=== PATIENT | female | born 1985 | race Caucasian/White ===

== ENCOUNTER → 2023-09-30 | Outpatient (CLI) | payer OTHER, SELFPAY ==
[2023-09-30 11:10] LABS: Erythrocyte Sedimentation Rate 4 mm/hr (0-30)
[2023-09-30 11:14] LABS: Absolute Lymphocyte Count 1.78 X10^3/uL (0.83-4.51); Absolute Neutrophil Count 2.8 X10^3/uL (2.0-7.7); Basophil# 0.02 X10^3/uL; Basophil% 0.4 % (0-1); Eosinophil# 0.14 X10^3/uL; Eosinophils% 2.8 % (0-5); Hematocrit 37.5 % (37-47); Hemoglobin 12.3 g/dL (12.0-15.0); Lymphocyte # 1.78 X10^3/ul (0.83-4.51); Mean Corp Hgb Conc 32.8 g/dL (32-36); Mean Corpuscular Hgb 28.3 pg (27.0-32.0); Mean Corpuscular Volume 86.4 fL (81-99); Mean Platelet Vol. 10.3 fl (6.2-12.0); Monocyte# 0.35 X10^3/uL; Monocyte% 6.9 % (0-10); NRBC Flagged by Analyzer 0 % (0-5); Neutrophil # 2.79 X10^3/uL (2.7-7.7); Neutrophil % 54.7 % (47-70); Platelet Count 237 K/mm3 (150-450); RBC Distribution Width CV 12.4 % (11.6-14.6); RBC Distribution Width SD 39.4 fl (35.1-43.9); Red Blood Count 4.34 M/mm3 (4.2-5.4); White Blood Count 5.1 K/mm3 (4.4-11.0)
[2023-09-30 12:42] LABS: ALB/GLOB Ratio 0.9 RATIO (0.9-2.4); AST(SGOT) 21 U/L (15-37); Alanine Aminotransfer ALT/SGPT 22 U/L (13-56); Albumin, Serum 3.6 g/dL (3.2-5.0); Alkaline Phosphatase 76 U/L (45-117); Anion Gap 10 (5-15); BUN 13 mg/dL (7-18); BUN/Creat Ratio 15.3 RATIO (10-20); CRP 8.46 mg/L (0.0-3.0); Calcium,Total 8.7 mg/dL (8.5-10.1); Chloride 105 mmol/L (98-107); Creatinine, Serum 0.85 mg/dL (0.55-1.02); EST Glomerular Filtration Rate 79 mL/min (>60); Est Glom Filt Rate - Afr Amer 96 mL/min (>60); Ferritin 98 ng/mL (8-252); Globulin 4.1 g/dL (2.2-4.2); Glucose 96 mg/dL (74-106); Potassium 3.7 mmol/L (3.5-5.1); Protein, Total 7.7 g/dL (6.4-8.2); Sodium Level 137 mmol/L (136-145)
[2023-10-03 20:08] LABS: Pancreatic Elastase, Fecal > 800 (>200)
[2023-10-04 06:14] LABS: Calprotectin, Stool 8 ug/g (0-120)
[2023-10-04 17:07] LABS: Anti-Centromere B Ab <0.2 AI (0.0-0.9); Anti-Chromatin <0.2 AI (0.0-0.9); Anti-Jo <0.2 AI (0.0-0.9); Anti-Mitochondrial AB <20.0 Units (0.0-20.0); Anti-Scleroderma-70 AB <0.2 AI (0.0-0.9); Anti-dsDNA Ab 3 IU/mL (0-9); Beef <0.10 kU/L (Class 0); Chocolate <0.10 kU/L (Class 0); Codfish <0.10 kU/L (Class 0); Corn <0.10 kU/L (Class 0); Egg, Whole <0.10 kU/L (Class 0); Milk (Cow) <0.10 kU/L (Class 0); Mussels <0.10 kU/L (Class 0); Peanut <0.10 kU/L (Class 0); Pork <0.10 kU/L (Class 0); RNP Ab 3.7 AI (0.0-0.9); SJOGREN'S Anti-SS-A test < 0.2 AI (0.0-0.9); SJOGREN'S Anti-SS-B test < 0.2 AI (0.0-0.9); Salmon <0.10 kU/L (Class 0); Shrimp <0.10 kU/L (Class 0); Smith Ab <0.2 AI (0.0-0.9); Soybean <0.10 kU/L (Class 0); Tuna <0.10 kU/L (Class 0); Wheat <0.10 kU/L (Class 0)
[2023-10-05 11:07] LABS: ACCA 13 units (0-90); ALCA 21 units (0-60); AMCA 39 units (0-100); Albumin 3.6 g/dL (2.9-4.4); Alpha-1-Globulins 0.3 g/dL (0.0-0.4); Alpha-2-Globulins 0.8 g/dL (0.4-1.0); Anti-Smooth Muscle ABS 6 Units (0-19); Cytoplasmic Ab (C-ANCA) <1:20 titer (Neg:<1:20); Endomysial Antibody IgA Negative (Negative); Gamma Globulin 1.4 g/dL (0.4-1.8); Immunoglobulin A 174 mg/dL (87-352); Immunoglobulin E 68 IU/mL (6-495); Immunoglobulin G 1383 mg/dL (586-1602); Immunoglobulin M 193 mg/dL (26-217); PROEL- TOTAL PROTEIN 7.3 g/dL (6.0-8.5); Perinuclear Ab (P-ANCA) <1:20 titer (Neg:<1:20); gASCA 18 units (0-50); t-Transglutaminase IgA <2 U/mL (0-3)
== END | disposition home or self-care (01) ==
PROVIDERS: PCP Internal Medicine; Referring Provider Student in an Organized Health Care Education/Training Program; Visit Provider Student in an Organized Health Care Education/Training Program
DX: K58.0 Irritable bowel syndrome with diarrhea (principal)
CPT/HCPCS: 36415; 80053; 82653; 82728; 82784; 82785; 83516; 83630; 83993; 84165; 85025; 85652; 86003; 86005; 86036; 86140; 86225; 86235; 86255; 86256; 86334; 86671

== ENCOUNTER → 2023-10-08 | Outpatient (CLI) | payer OTHER, SELFPAY ==
--- NOTE | 2023-10-08 16:00 | RAD_ITS ---
EXAM: XR LUMBOSACRAL SPINE, 2 OR 3 VIEWS CLINICAL INDICATION: back pain TECHNIQUE: Frontal and lateral views of the lumbar spine and sacrum. COMPARISON: Thoracic spine on the same date and lumbar spine dated 10/07/2006. FINDINGS: VERTEBRAE: Mild multilevel endplate osteophytosis and facet arthrosis. Mild apex right thoracolumbar curvature. Preserved vertebral body height. No fracture. No spondylolisthesis. DISC SPACES: No significant findings. Disc spaces are maintained. GASTROINTESTINAL TRACT: Normal as visualized. Included bowel gas pattern is non-obstructive. RAD/Lumbar Spine 2 or 3 Views IMPRESSION: Mild degenerative changes and spinal curvature. No acute findings. Electronically Signed: Kp Casas DO at 21:16 EDT ,
--- NOTE | 2023-10-08 16:00 | RAD_ITS ---
EXAM: XR THORACIC SPINE, 3 VIEWS CLINICAL INDICATION: back pain TECHNIQUE: Frontal, lateral and swimmer''s views of the thoracic spine. COMPARISON: Lumbar spine on the same date and thoracic spine, 10/07/2006. FINDINGS: VERTEBRAE: Subtle apex left thoracic curvature without significant rotation. Preserved vertebral body height. No fracture. No spondylolisthesis. No significant facet arthropathy. DISC SPACES: No significant abnormality. Disc spaces are maintained. RAD/Thoracic Spine 3 Views IMPRESSION: Subtle apex left thoracic curvature without significant rotation. This is new since 2006. Otherwise, no significant abnormality. Electronically Signed: Kp Casas DO at 21:15 EDT ,
--- NOTE | 2023-10-08 16:00 | RAD_ITS ---
EXAM: XR CERVICAL SPINE, 2 OR 3 VIEWS CLINICAL INDICATION: neck pain TECHNIQUE: Frontal and lateral views of the cervical spine. COMPARISON: Thoracic spine on the same date. FINDINGS: VERTEBRAE: Mild multilevel facet arthrosis, uncovertebral joint arthrosis, and endplate osteophytosis. Mild apex right cervical spine curvature. Preserved vertebral body height. No acute fracture. No spondylolisthesis. DISC SPACES: No significant abnormality. Disc spaces are maintained. SOFT TISSUES: No significant abnormality. No prevertebral soft tissue widening. LUNG APICES: Clear. RAD/Cerv Spine 2 or 3 Views IMPRESSION: Mild cervical spine curvature. Mild degenerative changes. No acute findings. Pending Final Proof Editing
[2023-10-08 16:19] LABS: CPK Total, Creatine Kinase 87 U/L (26-192)
[2023-10-10 11:09] LABS: Anti-dsDNA Ab 2 IU/mL (0-9)
[2023-10-10 14:09] LABS: Aldolase < 1.2 U/L (3.3-10.3); Complement C3 141 mg/dL (82-167); Complement CH50 57 U/mL (>41); IgG, Quant 1251 mg/dL (586-1602); Immunoglobulin G, Subclass 1 551 mg/dL (248-810); Immunoglobulin G, Subclass 2 471 mg/dL (130-555); Immunoglobulin G, Subclass 3 88 mg/dL (15-102); Immunoglobulin G, Subclass 4 23 mg/dL (2-96); Myoglobin, Serum 21 ng/mL (25-58)
== END | disposition home or self-care (01) ==
PROVIDERS: PCP Internal Medicine; Referring Provider Internal Medicine Gastroenterology; Visit Provider Internal Medicine Gastroenterology
DX: M35.1 Other overlap syndromes (principal); R19.7 Diarrhea, unspecified; M12.9 Arthropathy, unspecified
CPT/HCPCS: 36415; 72040; 72072; 72100; 82085; 82550; 82784; 82787; 83874; 86160; 86162; 86225

== ENCOUNTER → 2023-10-10 | Outpatient (CLI) | payer OTHER, SELFPAY | END | disposition home or self-care (01) | LOC: LAB 13:13 → LABSPEC 13:17 | PROVIDERS: PCP Internal Medicine; Referring Provider Internal Medicine Gastroenterology; Visit Provider Internal Medicine Gastroenterology | DX: R19.7 Diarrhea, unspecified (principal) ==

== ENCOUNTER → 2024-07-15 | Outpatient (CLI) | payer OTHER, SELFPAY ==
[2024-07-19 14:08] LABS: Aldolase 1.3 U/L (3.3-10.3)
== END | disposition home or self-care (01) ==
LOC: LAB 12:58
PROVIDERS: PCP Internal Medicine; Referring Provider Student in an Organized Health Care Education/Training Program; Visit Provider Student in an Organized Health Care Education/Training Program
DX: R19.7 Diarrhea, unspecified (principal)
CPT/HCPCS: 36415; 82085

== ENCOUNTER → 2024-08-09 | Outpatient (CLI) | payer OTHER, SELFPAY ==
--- NOTE | 2024-08-09 08:59 | BI_ITS ---
EXAM: SCRN MAMM (CAD)W/SOFIA BILAT DATE: 08/09/2024 CLINICAL HISTORY: F, Age 39 y/o , SCREENING BREAST CANCER RISK ASSESSMENT: Has not been calculated. TECHNIQUE: SCRN MAMM (CAD)W/SOFIA BILAT COMPARISON: None. This is a baseline study. FINDINGS: TISSUE DENSITY: The breast tissue is composed of scattered areas of fibroglandular density. Bilateral Breast Mammographic Findings: There are no suspicious masses, suspicious cluster of microcalcifications, architectural distortion or secondary signs of malignancy identified in either breast. BI/SCRN MAMM (CAD)W/SOFIA BILAT IMPRESSION: Unremarkable screening mammogram study. OVERALL FINAL ASSESSMENT BI-RADS 1: NEGATIVE. RECOMMEND ANNUAL MAMMOGRAPHIC SCREENING. RECOMMENDATION: Routine annual follow-up in 1 Year A letter with findings and recommendations will be mailed to the patient. Reading Location: [id number]
== END | disposition home or self-care (01) ==
PROVIDERS: PCP Internal Medicine; Referring Provider Nurse Practitioner Family; Visit Provider Nurse Practitioner Family
DX: Z12.31 Encounter for screening mammogram for malignant neoplasm of breast (principal)
CPT/HCPCS: 77063; 77067

== ENCOUNTER 2024-09-01 07:33 | Day surgery (SDC) | payer OTHER, SELFPAY ==
[2024-09-01] VITALS (8 sets, daily range): BP systolic 111–125; BP diastolic 71–92; PULSE 67–74; RESP 10–16; TEMP 36.4–37.1; O2SAT 98–100; BMI 25.7
[2024-09-01] MEDS: Lactated Ringers 1,000 ML 15 ML IV (08:02)
[2024-09-01 08:37] LABS: Internal QC Validated? YES +Cl - CLEAR BKGD; Pregnancy, Urine Negative Negative; Record Kit Lot#,Urine Preg 0000962302
--- NOTE | 2024-09-01 08:45 | COLBX_PTH ---
PATIENT: JOVANY MURRELL LOC: EN U#:[id number] AGE/SX: 39/F ROOM: RE09/01/[address]: Dr. Carmelo Song DO : 1985 BED: DIS: 09/01/2024 SPEC #: [id number] RECD: 09/01/24 10:42 STATUS: DOROTHY ALYSON #: [id number] FREDY: 09/01/24 08:[address]: Carmelo Song DEPT: SURGICAL PATHOLOGY RECD BY: Gentry Valenzuela ENTERED: 09/01/24 12:13 SP TYPE: COLON BX GOPI DR: Dr. Mago Dillon MD Tissues: A - Ileum, NOS B - COLON BIOPSY C - Rectum, NOS Procedures: Surgery Specimen Level IV HEADER OPERATION: Colonoscopy with biospies PRE-OP DIAGNOSIS: Diarrhea TISSUE SUBMITTED: A- Terminal ileum biopsy, B- Random colon biopsy, C- Rectum biopsy MICROSCOPIC DIAGNOSIS A. Terminal ileum, colon, biopsy: Unremarkable small bowel mucosa. B. Colon, random biopsy: Unremarkable colonic mucosa. Negative for microscopic colitis. C. Rectum, biopsy: Colonic mucosa with mild lamina propria fibrosis. MICROSCOPIC DESCRIPTION Slides are reviewed. GROSS DESCRIPTION A. Received in fixative is one container labeled with the patient's name and designated Terminal ileum biopsy. The specimen consists of two irregular fragments of light duron soft tissue that in aggregate measure 0.4 and 0.6 cm. The specimen is totally submitted in one cassette. B. Received in fixative is one container labeled with the patient's name and designated Random colon biopsy. The specimen consists of multiple irregular fragments of light duron soft tissue that in aggregate measure 1.2 x 0.8 x 0.2 cm. The specimen is totally submitted in one cassette. C. Received in fixative is one container labeled with the patient's name and designated Rectum biopsy. The specimen consists of two irregular fragments of light duron soft tissue that in aggregate measure 0.2 and 0.5 cm. The specimen is totally submitted in one cassette. ANASTASIA/ 09/01/2024 CPT:58787o5
--- NOTE | 2024-09-01 08:45 | COLBX_PTH ---
PATIENT: JOVANY MURRELL LOC: EN U#:[id number] AGE/SX: 39/F ROOM: RE09/01/[address]: Dr. Carmelo Song DO : 1985 BED: DIS: 09/01/2024 SPEC #: [id number] RECD: 09/01/24 10:42 STATUS: DOROTHY ALYSON #: [id number] FREDY: 09/01/24 08:[address]: Carmelo Song DEPT: SURGICAL PATHOLOGY RECD BY: Gentry Valenzuela ENTERED: 09/01/24 12:13 SP TYPE: COLON BX GOPI DR: Dr. Mago Dillon MD Tissues: A - Ileum, NOS B - COLON BIOPSY C - Rectum, NOS Procedures: Surgery Specimen Level IV HEADER OPERATION: Colonoscopy with biospies PRE-OP DIAGNOSIS: Diarrhea TISSUE SUBMITTED: A- Terminal ileum biopsy, B- Random colon biopsy, C- Rectum biopsy MICROSCOPIC DIAGNOSIS A. Terminal ileum, colon, biopsy: Unremarkable small bowel mucosa. B. Colon, random biopsy: Unremarkable colonic mucosa. Negative for microscopic colitis. C. Rectum, biopsy: Colonic mucosa with mild lamina propria fibrosis. MICROSCOPIC DESCRIPTION Slides are reviewed. GROSS DESCRIPTION A. Received in fixative is one container labeled with the patient's name and designated Terminal ileum biopsy. The specimen consists of two irregular fragments of light duron soft tissue that in aggregate measure 0.4 and 0.6 cm. The specimen is totally submitted in one cassette. B. Received in fixative is one container labeled with the patient's name and designated Random colon biopsy. The specimen consists of multiple irregular fragments of light duron soft tissue that in aggregate measure 1.2 x 0.8 x 0.2 cm. The specimen is totally submitted in one cassette. C. Received in fixative is one container labeled with the patient's name and designated Rectum biopsy. The specimen consists of two irregular fragments of light duron soft tissue that in aggregate measure 0.2 and 0.5 cm. The specimen is totally submitted in one cassette. ANASTASIA/ 09/01/2024 CPT:02572i3
--- NOTE | 2024-09-01 08:48 | HP.PCM_ITS ---
HPI - General General Date of Admission: 09/01/24 Date of Service: 09/01/24 Chief Complaint: Diarrhea HPI Narrative KIANNA MURRELL, is a 39 F who presents with of Chief Complaint: loose stool I established in September 2023 with complaints of chronic diarrhea worsening over the past few months. [id number] pain radiation to her esophagus. Last colonoscopy 10-12 years ago without abnormalities. No hx of EGD. s/p cholecystectomy Biochemical work up .; CRP H 8.46, IT DESKTOP SUPPORT TECHNICIAN antibody H 3.7 food allergy wnl, IgG wnl, IBD panel wnl, celiac panel wnl, CBC wnl, CMP wnl, Stool; 8.; Calprotectin wnl, elastase wnl, lactoferrin negative *Start colestipol and fiber supplement *Pt referred to Rheumatology for elevated anti IT DESKTOP SUPPORT TECHNICIAN antibody Last OV 04.02.24 Pt did well on colestipol at first however now she is having more loose stools. She has extreme urgency and will have accidents on occasion. 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 Increase colestipol to 2 grams daily. OV 07.09.24 Pt continues to have loose stool almost daily 3-4 times. She did not notice a difference with increasing the colestipol to 2 grams daily. Diarrhea is not post prandially and is typically worse in the morning. Stools are soft and then become liquid. She does have occasional formed stools. [facility] Medical History Autoimmune disease Wears glasses Anxiety Arthritis Easy bruising Back pain Gastric reflux Non-smoker Abnormal Pap smear of cervix IBS (irritable bowel syndrome) Headache, migraine GI problem Gallstones H/O emotional problems Seasonal allergies Home Medications ?Medication ?Instructions ?Recorded ?Last Taken ?Type norethindrone 1.5 mg-ethinyl 1 tab PO DAILY 11/19/21 U nknown History estradiol 30 mcg(21)/iron 75 mg(7) tablet ( FE .07/16 (28)) cetirizine 10 mg capsule (Zyrtec) 10 mg PO DAILY 11/28 Unknown History hydroxychloroquine 200 mg tablet 200 mg PO QDAY Unknown History (Plaquenil) citalopram 40 mg tablet (Celexa) 40 mg PO DAILY #90 ta bs 06/06/24 Unknown Rx colestipol 1 gram tablet 2 g PO BID 07/09/24 Unknown History Allergy/AdvReac Type Severity Reaction Status Date / Time latex Allergy Mild Rash Verified 09/01/24 07:50 Penicillins Allergy Mild Rash Verified 09/01/24 07:50 Iodinated Contrast Media Allergy Hives Verified 09/01/24 07:50 Family History Mother Arthritis Grandmother Arthritis Hypertension Sister Depression Hypertension Mental disorder H/O psychiatric care Bipolar 1 disorder Surgical History H/O lumpectomy History of cholecystectomy History of colonoscopy H/O LEEP History of Social History household members: children current occupational status: employed 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 Smoking Status: Never smoker Electronic Cigarette Use: not used alcohol intake: current alcohol intake frequency: holidays/special occasions only substance use type: does not use what type of physical activity do you participate in: none do you feel safe at home: Yes ROS Constitutional Constitutional: Denies fatigue, fever(s), poor appetite, weight gain or weight loss Gastrointestinal Gastrointestinal: Denies belching, bloating, change in bowel habits, change in stool character, chewing difficulty, coffee ground emesis, constipation, cramping, diarrhea, dyspepsia, dysphagia, early satiety, excessive flatus, fecal incontinence, heartburn, hematemesis, hematochezia, hemorrhoids, loose stools, melena, nausea, odynophagia, rectal bleeding, tenesmus, vomiting or weight changes Vital Signs Vital Signs Vital Signs: 09/01/24 07:52 09/01/24 07:52 Temperature 98.0 F Temperature Source Temporal Pulse Rate 74 Respiratory Rate 16 Respiratory Pattern Normal Blood Pressure 125/88 H Blood Pressure Mean 100 Blood Pressure Source Monitor Blood Pressure Position Semi-Fowlers Blood Pressure Location Right Arm Pulse Ox 98 Oxygen Delivery Method Room Air Weight Weight: 149 lb 14.629 oz Body Mass Index (BMI) 25.7 Physical Exam Const alert, oriented x3, no apparent distress and healthy appearing General Appearance: cooperative GI normal to inspection, nondistended, normoactive bowel sounds, soft to palpation, non-tender and non-distended Percussion: normal to percussion Rectal Exam: deferred Results Lab / Micro Data Labs: Laboratory Results - last 24 hr 09/01/24 07:40: Urine Test Negative Assessment & Plan Assessment/Plan (1) Diarrhea: PLAN: Assessment and Plan Assessment and Plan (1) Diarrhea: Status: Acute Plan: Kianna is a 38 yo female pt here today for f/u regarding her ongoing issues with loose stools. Following her last anointment, her colestipol was increased to 2 grams daily which has not made a difference. Since her symptoms have been going on for some time now and have been refractory to treatment she will undergo colonoscopy. I have also ordered repeat aldolase level as it was previously low. SHe will increase colestipol to two grams in the morning and 2 grams in evening. -Colonoscopy -Repeat aldolase -Increase colestipol to 2 grams BID -f/u after procedure Orders: Orders Aldolase Today R19.7 - Diarrhea, unspecified
--- NOTE | 2024-09-01 08:48 | HP.PCM_ITS ---
HPI - General General Date of Admission: 09/01/24 Date of Service: 09/01/24 Chief Complaint: Diarrhea HPI Narrative KIANNA MURRELL, is a 39 F who presents with of Chief Complaint: loose stool I established in September 2023 with complaints of chronic diarrhea worsening over the past few months. [id number] pain radiation to her esophagus. Last colonoscopy 10-12 years ago without abnormalities. No hx of EGD. s/p cholecystectomy Biochemical work up .; CRP H 8.46, HAND BOOKED FOLDER AND STITCHER antibody H 3.7 food allergy wnl, IgG wnl, IBD panel wnl, celiac panel wnl, CBC wnl, CMP wnl, Stool; 8.; Calprotectin wnl, elastase wnl, lactoferrin negative *Start colestipol and fiber supplement *Pt referred to Rheumatology for elevated anti HAND BOOKED FOLDER AND STITCHER antibody Last OV 04.02.24 Pt did well on colestipol at first however now she is having more loose stools. She has extreme urgency and will have accidents on occasion. 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 Increase colestipol to 2 grams daily. OV 07.09.24 Pt continues to have loose stool almost daily 3-4 times. She did not notice a difference with increasing the colestipol to 2 grams daily. Diarrhea is not post prandially and is typically worse in the morning. Stools are soft and then become liquid. She does have occasional formed stools. [facility] Medical History Autoimmune disease Wears glasses Anxiety Arthritis Easy bruising Back pain Gastric reflux Non-smoker Abnormal Pap smear of cervix IBS (irritable bowel syndrome) Headache, migraine GI problem Gallstones H/O emotional problems Seasonal allergies Home Medications ?Medication ?Instructions ?Recorded ?Last Taken ?Type norethindrone 1.5 mg-ethinyl 1 tab PO DAILY 11/19/21 U nknown History estradiol 30 mcg(21)/iron 75 mg(7) tablet ( FE .07/16 (28)) cetirizine 10 mg capsule (Zyrtec) 10 mg PO DAILY 11/28 Unknown History hydroxychloroquine 200 mg tablet 200 mg PO QDAY Unknown History (Plaquenil) citalopram 40 mg tablet (Celexa) 40 mg PO DAILY #90 ta bs 06/06/24 Unknown Rx colestipol 1 gram tablet 2 g PO BID 07/09/24 Unknown History Allergy/AdvReac Type Severity Reaction Status Date / Time latex Allergy Mild Rash Verified 09/01/24 07:50 Penicillins Allergy Mild Rash Verified 09/01/24 07:50 Iodinated Contrast Media Allergy Hives Verified 09/01/24 07:50 Family History Mother Arthritis Grandmother Arthritis Hypertension Sister Depression Hypertension Mental disorder H/O psychiatric care Bipolar 1 disorder Surgical History H/O lumpectomy History of cholecystectomy History of colonoscopy H/O LEEP History of Social History household members: children current occupational status: employed 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 Smoking Status: Never smoker Electronic Cigarette Use: not used alcohol intake: current alcohol intake frequency: holidays/special occasions only substance use type: does not use what type of physical activity do you participate in: none do you feel safe at home: Yes ROS Constitutional Constitutional: Denies fatigue, fever(s), poor appetite, weight gain or weight loss Gastrointestinal Gastrointestinal: Denies belching, bloating, change in bowel habits, change in stool character, chewing difficulty, coffee ground emesis, constipation, cramping, diarrhea, dyspepsia, dysphagia, early satiety, excessive flatus, fecal incontinence, heartburn, hematemesis, hematochezia, hemorrhoids, loose stools, melena, nausea, odynophagia, rectal bleeding, tenesmus, vomiting or weight changes Vital Signs Vital Signs Vital Signs: 09/01/24 07:52 09/01/24 07:52 Temperature 98.0 F Temperature Source Temporal Pulse Rate 74 Respiratory Rate 16 Respiratory Pattern Normal Blood Pressure 125/88 H Blood Pressure Mean 100 Blood Pressure Source Monitor Blood Pressure Position Semi-Fowlers Blood Pressure Location Right Arm Pulse Ox 98 Oxygen Delivery Method Room Air Weight Weight: 149 lb 14.629 oz Body Mass Index (BMI) 25.7 Physical Exam Const alert, oriented x3, no apparent distress and healthy appearing General Appearance: cooperative GI normal to inspection, nondistended, normoactive bowel sounds, soft to palpation, non-tender and non-distended Percussion: normal to percussion Rectal Exam: deferred Results Lab / Micro Data Labs: Laboratory Results - last 24 hr 09/01/24 07:40: Urine Test Negative Assessment & Plan Assessment/Plan (1) Diarrhea: PLAN: Assessment and Plan Assessment and Plan (1) Diarrhea: Status: Acute Plan: Kianna is a 38 yo female pt here today for f/u regarding her ongoing issues with loose stools. Following her last anointment, her colestipol was increased to 2 grams daily which has not made a difference. Since her symptoms have been going on for some time now and have been refractory to treatment she will undergo colonoscopy. I have also ordered repeat aldolase level as it was previously low. SHe will increase colestipol to two grams in the morning and 2 grams in evening. -Colonoscopy -Repeat aldolase -Increase colestipol to 2 grams BID -f/u after procedure Orders: Orders Aldolase Today R19.7 - Diarrhea, unspecified
--- NOTE | 2024-09-01 08:53 | PCM.PRE.AN2 ---
ASA Classification* ASA Classification ASA Classification: 2 Assessment & Plan Anesthesia* Anesthesia Assessment Anesthesia Assessment: Discussed sedation and/or anesthesia options, risks, benefits, and alternatives with patient/parents/legal guardian/POA. Questions invited. The patient/parents/legal guardian/POA seems to understand and agrees to proceed with anesthesia plan. Reviewed the physical assessment, medical history, allergy history and patient home medications list prior to surgery/procedure/anesthetic and documented any changes. Performed airway and anesthesia risk assessments. Anesthesia Type Anesthesia Type: MAC History Source History Obtained from:: Patient and Chart Anesthesia Focused Assessment* Temperature: 98.0 F Pulse Rate: 74 Blood Pressure: 125/88 Respiratory Rate: 16 Pulse Ox: 98 Oxygen Delivery Method: Room Air Airway Assessment Mouth opens: >3 cm Mallampati Score: I Teeth Condition: Intact Labs Anesthesia Preop lab: CBC WBC 5.1 K/mm3 (4.4-11.0) 09/30/23 10:18 09/30/23 RBC 4.34 M/mm3 (4.2-5.4) 09/30/23 10:18 09/30/23 Hgb 12.3 g/dL (12.0-15.0) 09/30/23 10:18 09/30/23 Hct 37.5 % (37-47) 09/30/23 10:18 09/30/23 Plt Count 237 K/mm3 (150-450) 09/30/23 10:18 09/30/23 CHEMISTRY Potassium 3.7 mmol/L (3.5-5.1) 09/30/23 10:18 09/30/23 Sodium 137 mmol/L (136-145) 09/30/23 10:18 09/30/23 Phosphorus 2.7 mg/dL (2.5-4.9) 11/19/22 07:48 11/19/22 BUN 13 mg/dL (7-18) 09/30/23 10:18 09/30/23 Creatinine 0.85 mg/dL (0.55-1.02) 09/30/23 10:18 09/30/23 Glucose 96 mg/dL (74-106) 09/30/23 10:18 09/30/23 COAG Urine Test Negative Negative 09/01/24 07:40 09/01/24 Pre-Assessment Diagnosis/Proposed Procedure Planned Operative Procedure(s): COLONOSCOPY Anesthesia History 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 When Was Last Pacemaker Check QUESTION #4 FULL TEXT: You/Your Family Experience fever (hyperthermia) with Anesthesia Last Oral Intake Last Oral intake: Last Oral Intake NPO since 04:45 09/01/24 07:52 Meds taken in AM with sips of water? Meds patient instructed to take am of surgery PONV PONV - community service organization director: PONV - community service organization director Female Yes 08/26/24 14:41 HX of Motion Sickness No 08/26/24 14:41 HX of N/V After Surgery Yes 08/26/24 14:41 Non-Smoker Yes 08/26/24 14:41 Duration of Surgery greater No 08/26/24 14:41 than 60 minutes Number of Risk Factors 3 08/26/24 14:41 PONV Score Moderate Risk 08/26/24 14:41 Height & Weight Height & Weight: Anesthesia: Height & Weight Height 5 ft 4 in 09/01/24 07:52 Weight: 68 kg 09/01/24 07:52 Body Mass Index (BMI) 25.7 09/01/24 07:52 Respiratory Assessment Respiratory Assessment - community service organization director: Respiratory Tract Infection Hx - community service organization director Hx Respiratory Tract Infection No 08/26/24 14:41 STOP Sleep Apnea STOP Sleep Apnea - community service organization director: STOP Sleep Apnea - community service organization director Hx Hypertension No 08/26/24 14:41 Hx Sleep Apnea No 08/26/24 14:41 CPAP BIPAP Do you snore loudly (louder No 08/26/24 14:41 than talking or can be heard Do you often feel tired/ No 08/26/24 14:41 fatigued/ sleepy during daytime? Has anyone observed you stop No 08/26/24 14:41 breathing during sleep? STOP Results Negative 08/26/24 14:41 QUESTION #5 FULL TEXT : Do you snore loudly (louder than talking or can be heard through closed doors)? 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 Specify any problems Hx of Preganancy in last 3 No 08/26/24 14:41 Months Nurse Filling Out Transfusion [email or web address] 08/26/24 14:41 & Questions: Date: 08/26/24 08/26/24 14:41 Time: 14:42 08/26/24 14:41 Patient unable to answer at this time (ie. confused, unrespo /Reproduction History /Reproductive History - community service organization director: /Reproductive Hx- community service organization director Hx Now Gestational Age (in weeks): EDC: Hx Hx Para Hx Section SAB Active Medications Active Medications: Current Medications Generic Name Dose Route Start Last Admin Trade Name Freq PRN Reason Stop Dose Admin Lactated Ringer's 1,000 mls @ 15 mls/hr 09/01/24 07:45 09/01/24 08:02 IV 15 mls/hr .Q48H TERESA Administration PFSH Medical History Autoimmune disease Wears glasses Anxiety Arthritis Easy bruising Back pain Gastric reflux Non-smoker Abnormal Pap smear of cervix IBS (irritable bowel syndrome) Headache, migraine GI problem Gallstones H/O emotional problems Seasonal allergies Home Medications ?Medication ?Instructions ?Recorded ?Last Taken ?Type norethindrone 1.5 mg-ethinyl 1 tab PO DAILY 11/19/21 Unknown History estradiol 30 mcg(21)/iron 75 mg(7) tablet (Junel FE 1.5/30 (28)) cetirizine 10 mg capsule (Zyrtec) 10 mg PO DAILY 11/28/22 Unknown History hydroxychloroquine 200 mg tablet 200 mg PO QDAY 04/02/24 Unknown History (Plaquenil) citalopram 40 mg tablet (Celexa) 40 mg PO DAILY #90 tabs 06/06/24 Unknown Rx colestipol 1 gram tablet 2 g PO BID 07/09/24 Unknown History Allergy/AdvReac Type Severity Reaction Status Date / Time latex Allergy Mild Rash Verified 09/01/24 07:50 Penicillins Allergy Mild Rash Verified 09/01/24 07:50 Iodinated Contrast Media Allergy Hives Verified 09/01/24 07:50 Family History Mother Arthritis Grandmother Arthritis Hypertension Sister Depression Hypertension Mental disorder H/O psychiatric care Bipolar 1 disorder Surgical History H/O lumpectomy History of cholecystectomy History of colonoscopy H/O LEEP History of Social History household members: children current occupational status: employed 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 Physical Exam Const alert and oriented x3 HEENT dentition normal Resp normal respiratory effort Cardio regular rate Back/Spine normal ROM Extremity full ROM Neuro oriented x3 and moves all extremities
--- NOTE | 2024-09-01 08:53 | PCM.PRE.AN2 ---
ASA Classification* ASA Classification ASA Classification: 2 Assessment & Plan Anesthesia* Anesthesia Assessment Anesthesia Assessment: Discussed sedation and/or anesthesia options, risks, benefits, and alternatives with patient/parents/legal guardian/POA. Questions invited. The patient/parents/legal guardian/POA seems to understand and agrees to proceed with anesthesia plan. Reviewed the physical assessment, medical history, allergy history and patient home medications list prior to surgery/procedure/anesthetic and documented any changes. Performed airway and anesthesia risk assessments. Anesthesia Type Anesthesia Type: MAC History Source History Obtained from:: Patient and Chart Anesthesia Focused Assessment* Temperature: 98.0 F Pulse Rate: 74 Blood Pressure: 125/88 Respiratory Rate: 16 Pulse Ox: 98 Oxygen Delivery Method: Room Air Airway Assessment Mouth opens: >3 cm Mallampati Score: I Teeth Condition: Intact Labs Anesthesia Preop lab: CBC WBC 5.1 K/mm3 (4.4-11.0) 09/30/23 10:18 09/30/23 RBC 4.34 M/mm3 (4.2-5.4) 09/30/23 10:18 09/30/23 Hgb 12.3 g/dL (12.0-15.0) 09/30/23 10:18 09/30/23 Hct 37.5 % (37-47) 09/30/23 10:18 09/30/23 Plt Count 237 K/mm3 (150-450) 09/30/23 10:18 09/30/23 CHEMISTRY Potassium 3.7 mmol/L (3.5-5.1) 09/30/23 10:18 09/30/23 Sodium 137 mmol/L (136-145) 09/30/23 10:18 09/30/23 Phosphorus 2.7 mg/dL (2.5-4.9) 11/19/22 07:48 11/19/22 BUN 13 mg/dL (7-18) 09/30/23 10:18 09/30/23 Creatinine 0.85 mg/dL (0.55-1.02) 09/30/23 10:18 09/30/23 Glucose 96 mg/dL (74-106) 09/30/23 10:18 09/30/23 COAG Urine Test Negative Negative 09/01/24 07:40 09/01/24 Pre-Assessment Diagnosis/Proposed Procedure Planned Operative Procedure(s): COLONOSCOPY Anesthesia History 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 When Was Last Pacemaker Check QUESTION #4 FULL TEXT: You/Your Family Experience fever (hyperthermia) with Anesthesia Last Oral Intake Last Oral intake: Last Oral Intake NPO since 04:45 09/01/24 07:52 Meds taken in AM with sips of water? Meds patient instructed to take am of surgery PONV PONV - grease renderer: PONV - grease renderer Female Yes 08/26/24 14:41 HX of Motion Sickness No 08/26/24 14:41 HX of N/V After Surgery Yes 08/26/24 14:41 Non-Smoker Yes 08/26/24 14:41 Duration of Surgery greater No 08/26/24 14:41 than 60 minutes Number of Risk Factors 3 08/26/24 14:41 PONV Score Moderate Risk 08/26/24 14:41 Height & Weight Height & Weight: Anesthesia: Height & Weight Height 5 ft 4 in 09/01/24 07:52 Weight: 68 kg 09/01/24 07:52 Body Mass Index (BMI) 25.7 09/01/24 07:52 Respiratory Assessment Respiratory Assessment - grease renderer: Respiratory Tract Infection Hx - grease renderer Hx Respiratory Tract Infection No 08/26/24 14:41 STOP Sleep Apnea STOP Sleep Apnea - grease renderer: STOP Sleep Apnea - grease renderer Hx Hypertension No 08/26/24 14:41 Hx Sleep Apnea No 08/26/24 14:41 CPAP BIPAP Do you snore loudly (louder No 08/26/24 14:41 than talking or can be heard Do you often feel tired/ No 08/26/24 14:41 fatigued/ sleepy during daytime? Has anyone observed you stop No 08/26/24 14:41 breathing during sleep? STOP Results Negative 08/26/24 14:41 QUESTION #5 FULL TEXT : Do you snore loudly (louder than talking or can be heard through closed doors)? 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 Specify any problems Hx of Preganancy in last 3 No 08/26/24 14:41 Months Nurse Filling Out Transfusion [email or web address] 08/26/24 14:41 & Questions: Date: 08/26/24 08/26/24 14:41 Time: 14:42 08/26/24 14:41 Patient unable to answer at this time (ie. confused, unrespo /Reproduction History /Reproductive History - grease renderer: /Reproductive Hx- grease renderer Hx Now Gestational Age (in weeks): EDC: Hx Hx Para Hx Section SAB Active Medications Active Medications: Current Medications Generic Name Dose Route Start Last Admin Trade Name Freq PRN Reason Stop Dose Admin Lactated Ringer's 1,000 mls @ 15 mls/hr 09/01/24 07:45 09/01/24 08:02 IV 15 mls/hr .Q48H TERESA Administration PFSH Medical History Autoimmune disease Wears glasses Anxiety Arthritis Easy bruising Back pain Gastric reflux Non-smoker Abnormal Pap smear of cervix IBS (irritable bowel syndrome) Headache, migraine GI problem Gallstones H/O emotional problems Seasonal allergies Home Medications ?Medication ?Instructions ?Recorded ?Last Taken ?Type norethindrone 1.5 mg-ethinyl 1 tab PO DAILY 11/19/21 Unknown History estradiol 30 mcg(21)/iron 75 mg(7) tablet (Junel FE 1.5/30 (28)) cetirizine 10 mg capsule (Zyrtec) 10 mg PO DAILY 11/28/22 Unknown History hydroxychloroquine 200 mg tablet 200 mg PO QDAY 04/02/24 Unknown History (Plaquenil) citalopram 40 mg tablet (Celexa) 40 mg PO DAILY #90 tabs 06/06/24 Unknown Rx colestipol 1 gram tablet 2 g PO BID 07/09/24 Unknown History Allergy/AdvReac Type Severity Reaction Status Date / Time latex Allergy Mild Rash Verified 09/01/24 07:50 Penicillins Allergy Mild Rash Verified 09/01/24 07:50 Iodinated Contrast Media Allergy Hives Verified 09/01/24 07:50 Family History Mother Arthritis Grandmother Arthritis Hypertension Sister Depression Hypertension Mental disorder H/O psychiatric care Bipolar 1 disorder Surgical History H/O lumpectomy History of cholecystectomy History of colonoscopy H/O LEEP History of Social History household members: children current occupational status: employed 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 Physical Exam Const alert and oriented x3 HEENT dentition normal Resp normal respiratory effort Cardio regular rate Back/Spine normal ROM Extremity full ROM Neuro oriented x3 and moves all extremities
--- NOTE | 2024-09-01 09:34 | PCM.POST.ANE ---
Anesthesia: Postop Eval I Current Vital Signs Temperature: 97.5 F Pulse Rate: 67 Blood Pressure: 116/71 Respiratory Rate: 16 Pulse Ox: 100 Oxygen Delivery Method: Room Air Assessment Airway patent: Yes Spontaneous unlabored respirations: Yes Mental status: Asleep nausea: No Vomiting: No Anesthesia Complication: No Fluid Hydration Crystalloid volume administer (ml): 800 Total IV fluid infused: 800 Progress Note Anesthesia document: Postop Eval 1 completed: Yes
--- NOTE | 2024-09-01 09:38 | OP.COLON_ITS ---
Patient Name: Kianna Baird Procedure Date: 09/01/2024 8:53 AM Date of : 1985 Age: 39 Procedure: Colonoscopy Indications: Clinically significant diarrhea of unexplained origin Providers: Carmelo Song DO Referring MD: Mago Dillon Md Medicines: Monitored Anesthesia Care Patient Profile: This is a 39 year old female. Refer to note in patient chart for documentation of history and physical. Last Colonoscopy: several years ago. Complications: No immediate complications. Procedure: Pre-Anesthesia Assessment: - Prior to the procedure, a History and Physical was performed, and patient medications and allergies were reviewed. The patient is competent. The risks and benefits of the procedure and the sedation options and risks were discussed with the patient. All questions were answered and informed consent was obtained. Patient identification and proposed procedure were verified by the physician in the pre-procedure area. Mental Status Examination: alert and oriented. Airway Examination: normal oropharyngeal airway and neck mobility. Respiratory Examination: clear to auscultation. CV Examination: normal. ASA Grade Assessment: II - A patient with mild systemic disease. After reviewing the risks and benefits, the patient was deemed in satisfactory condition to undergo the procedure. The anesthesia plan was to use monitored anesthesia care (MAC). Immediately prior to administration of medications, the patient was re-assessed for adequacy to receive sedatives. The heart rate, respiratory rate, oxygen saturations, blood pressure, adequacy of pulmonary ventilation, and response to care were monitored throughout the procedure. The physical status of the patient was re-assessed after the procedure. After I obtained informed consent, the scope was passed under direct vision. Throughout the procedure, the patient's blood pressure, pulse, and oxygen saturations were monitored continuously. The Colonoscope was introduced through the anus and advanced to the terminal ileum. The colonoscopy was performed without difficulty. The patient tolerated the procedure well. The quality of the bowel preparation was adequate. The terminal ileum, ileocecal valve, appendiceal orifice, and rectum were photographed. Scope In: 9:08:31 AM Scope Withdrawal Time 0 hours 11 minutes 14 seconds Scope Out: 9:25:07 AM Total Procedure Duration Time 0 hours 16 minutes 36 seconds Findings: The perianal and digital rectal examinations were normal. An area of mildly congested mucosa was found in the recto-sigmoid colon, in the sigmoid colon, in the transverse colon and in the ascending colon. Biopsies were taken with a cold forceps for histology. Verification of patient identification for the specimen was done. Estimated blood loss was minimal. The terminal ileum appeared normal. Biopsies were taken with a cold forceps for histology. Verification of patient identification for the specimen was done. Estimated blood loss was minimal. Impression: - Congested mucosa in the recto-sigmoid colon, in the sigmoid colon, in the transverse colon and in the ascending colon. Biopsied. - The examined portion of the ileum was normal. Biopsied. Recommendation: - Discharge patient to home. - Resume previous diet. - Continue present medications. - Await pathology results. - Repeat colonoscopy for surveillance based on pathology results. Procedure Code(s): --- Professional --- 26507, Colonoscopy, flexible; with biopsy, single or multiple CPT copyright 2021 [employer]. All rights reserved. The codes documented in this report are preliminary and upon barrel assembler helper review may be revised to meet current compliance requirements. Carmelo Song DO 09/01/2024 9:38:13 AM This report has been signed electronically. Number of Addenda: 0 Note Initiated On: 09/01/2024 8:53 AM
--- NOTE | 2024-09-01 09:38 | OP.COLON_ITS ---
Patient Name: Kianna Baird Procedure Date: 09/01/2024 8:53 AM Date of : 1985 Age: 39 Procedure: Colonoscopy Indications: Clinically significant diarrhea of unexplained origin Providers: Carmelo Song DO Referring MD: Mago Dillon Md Medicines: Monitored Anesthesia Care Patient Profile: This is a 39 year old female. Refer to note in patient chart for documentation of history and physical. Last Colonoscopy: several years ago. Complications: No immediate complications. Procedure: Pre-Anesthesia Assessment: - Prior to the procedure, a History and Physical was performed, and patient medications and allergies were reviewed. The patient is competent. The risks and benefits of the procedure and the sedation options and risks were discussed with the patient. All questions were answered and informed consent was obtained. Patient identification and proposed procedure were verified by the physician in the pre-procedure area. Mental Status Examination: alert and oriented. Airway Examination: normal oropharyngeal airway and neck mobility. Respiratory Examination: clear to auscultation. CV Examination: normal. ASA Grade Assessment: II - A patient with mild systemic disease. After reviewing the risks and benefits, the patient was deemed in satisfactory condition to undergo the procedure. The anesthesia plan was to use monitored anesthesia care (MAC). Immediately prior to administration of medications, the patient was re-assessed for adequacy to receive sedatives. The heart rate, respiratory rate, oxygen saturations, blood pressure, adequacy of pulmonary ventilation, and response to care were monitored throughout the procedure. The physical status of the patient was re-assessed after the procedure. After I obtained informed consent, the scope was passed under direct vision. Throughout the procedure, the patient's blood pressure, pulse, and oxygen saturations were monitored continuously. The Colonoscope was introduced through the anus and advanced to the terminal ileum. The colonoscopy was performed without difficulty. The patient tolerated the procedure well. The quality of the bowel preparation was adequate. The terminal ileum, ileocecal valve, appendiceal orifice, and rectum were photographed. Scope In: 9:08:31 AM Scope Withdrawal Time 0 hours 11 minutes 14 seconds Scope Out: 9:25:07 AM Total Procedure Duration Time 0 hours 16 minutes 36 seconds Findings: The perianal and digital rectal examinations were normal. An area of mildly congested mucosa was found in the recto-sigmoid colon, in the sigmoid colon, in the transverse colon and in the ascending colon. Biopsies were taken with a cold forceps for histology. Verification of patient identification for the specimen was done. Estimated blood loss was minimal. The terminal ileum appeared normal. Biopsies were taken with a cold forceps for histology. Verification of patient identification for the specimen was done. Estimated blood loss was minimal. Impression: - Congested mucosa in the recto-sigmoid colon, in the sigmoid colon, in the transverse colon and in the ascending colon. Biopsied. - The examined portion of the ileum was normal. Biopsied. Recommendation: - Discharge patient to home. - Resume previous diet. - Continue present medications. - Await pathology results. - Repeat colonoscopy for surveillance based on pathology results. Procedure Code(s): --- Professional --- 82715, Colonoscopy, flexible; with biopsy, single or multiple CPT copyright 2021 [employer]. All rights reserved. The codes documented in this report are preliminary and upon municipal maintenance worker review may be revised to meet current compliance requirements. Carmelo Song DO 09/01/2024 9:38:13 AM This report has been signed electronically. Number of Addenda: 0 Note Initiated On: 09/01/2024 8:53 AM
--- NOTE | 2024-09-01 09:38 | OP.CCLET_ITS ---
09/01/2024 Mago Dillon Md Re : Colonoscopy procedure for Kianna Baird Dear Santana This procedure was performed on Sunday, September 01, 2024. My impressions and recommendations are as follows: Impressions : - Congested mucosa in the recto-sigmoid colon, in the sigmoid colon, in the transverse colon and in the ascending colon. Biopsied. - The examined portion of the ileum was normal. Biopsied. Recommendations : - Discharge patient to home. - Resume previous diet. - Continue present medications. - Await pathology results. - Repeat colonoscopy for surveillance based on pathology results. My findings are described in the full procedure note, which is enclosed. If I can be of further assistance, please feel free to contact me at . Sincerely, Carmelo Song, 09/01/2024 9:38:13 AM This report has been signed electronically.
--- NOTE | 2024-09-01 09:54 | PCM.POSTANE2 ---
Anesthesia Postop Eval I Sum Postop Eval Completion status Anesthesia document: Postop Eval 1 completed: Yes Anesthesia Postop Eval I Summary Anesthesia Postop Eval I Summary: Anesthesia Postop Eval I: Assessment Summary Airway patent Yes 09/01/24 09:35 [email or web address] Spontaneous unlabored Yes 09/01/24 09:35 [email or web address] respirations Mental status Asleep 09/01/24 09:35 [email or web address] nausea No 09/01/24 09:35 [email or web address] Vomiting No 09/01/24 09:35 [email or web address] Anesthesia Postop Eval I: Fluid Summary Crystalloid volume administer 800 09/01/24 09:35 [email or web address] (ml) Colloids volume administered ( ml) Blood Product volume administered (ml) Total IV fluid infused 800 09/01/24 09:35 [email or web address] Anesthesia Postop Eval I: Summary Notes Anesthesia Complication No 09/01/24 09:35 [email or web address] Anesthesia Complication Comment: Post-operative progress note Anesthesia: Postop Eval II Evaluation Mental status: Awake and Calm Pain Level: 0 nausea: No Vomiting: No Complications Anesthesia Complication: No
== END 2024-09-01 10:16 | disposition home or self-care (01) ==
LOC: EN 07:33 → AC 07:34
PROVIDERS: Anesthesiology; PCP Internal Medicine; Referring Provider Internal Medicine; Visit Provider Internal Medicine Gastroenterology
PROC: 0DJD8ZZ Inspection of Lower Intestinal Tract, Via Natural or Artificial Opening Endoscopic (ICD-10-PCS; CPT 45378; principal; 2024-09-01 08:40)
DX: K52.9 Noninfective gastroenteritis and colitis, unspecified (principal); Z90.49 Acquired absence of other specified parts of digestive tract; Z79.899 Other long term (current) drug therapy
CPT/HCPCS: 45380; 81025; 88305; J2405

== ENCOUNTER → 2024-11-24 | Outpatient (CLI) | payer OTHER, SELFPAY ==
--- NOTE | 2024-11-24 11:40 | RAD_ITS ---
EXAM: XR Lumbosacral Spine, 4 or 5 Views CLINICAL INDICATION: BACK PAIN TECHNIQUE: Frontal, lateral and bilateral oblique views of the lumbar spine. COMPARISON: No relevant prior studies available. FINDINGS: VERTEBRAE: Mild facet arthropathy of L4 the S1. Normal alignment. No fracture or significant dynamic instability. SACRUM/COCCYX: Unremarkable as visualized. No acute fracture. DISC SPACES: No acute findings. No significant narrowing. SOFT TISSUES: Unremarkable. RAD/L/S Spine Comp/w Bending Views IMPRESSION: Degenerative changes as above. Reading Location: [id number]
== END | disposition home or self-care (01) ==
LOC: RAD 11:32
PROVIDERS: PCP Internal Medicine; Referring Provider Student in an Organized Health Care Education/Training Program; Visit Provider Student in an Organized Health Care Education/Training Program
DX: M54.9 Dorsalgia, unspecified (principal)
CPT/HCPCS: 72114

== ENCOUNTER → 2024-12-21 | Outpatient (CLI) | payer OTHER, SELFPAY ==
[2024-12-21 13:41] LABS: Vitamin B12 352 pg/mL (180-914); Vitamin D,25 Hydroxy 36.0 ng/mL (30-100)
== END | disposition home or self-care (01) ==
LOC: LAB 10:00
PROVIDERS: PCP Internal Medicine; Referring Provider Internal Medicine; Visit Provider Internal Medicine
DX: R53.83 Other fatigue (principal)
CPT/HCPCS: 36415; 82306; 82607; 84443

== ENCOUNTER → 2025-01-07 | Outpatient (CLI) | payer OTHER, SELFPAY ==
--- NOTE | 2025-01-07 08:48 | MRI_ITS ---
PROCEDURE: SPINE LUMBAR (ROUTINE) 01/07/2025 REASON FOR EXAM: LUMBAR RADICULOPATHY TECHNIQUE: Procedure Code: MRISPL Modality: MR Procedure: SPINE LUMBAR (ROUTINE) COMPARISON: Lumbar spine x-ray FINDINGS: Vertebrae: Preserved in height and signal. Alignment: No malalignment. Conus Medullaris: Unremarkable. L1-2: Unremarkable. L2-3: Unremarkable. L3-4: Unremarkable L4-5: Unremarkable. L5-S1: Disc desiccation. A 4 mm central disc protrusion. Mild bilateral foramina stenosis. Mild canal stenosis. Sacrum: Unremarkable. MRI/Spine Lumbar (Routine) IMPRESSION: A 4 mm central disc protrusion at L5-S1. Mild bilateral foramina stenosis. Mil d canal stenosis. The remainder disc levels are unremarkable. Reading Location: [id number]
== END | disposition home or self-care (01) ==
LOC: MRI 08:47
PROVIDERS: PCP Internal Medicine; Referring Provider Orthopaedic Surgery Orthopaedic Surgery of the Spine; Visit Provider Orthopaedic Surgery Orthopaedic Surgery of the Spine
DX: M54.16 Radiculopathy, lumbar region (principal)
CPT/HCPCS: 72148